=== PATIENT | male | born 2005 | race Caucasian/White ===

== ENCOUNTER 2025-01-03 18:58 | Observation (INO) | payer OTHER, SELFPAY ==
[2025-01-03] VITALS (10 sets, daily range): BP systolic 93–114; BP diastolic 42–86; PULSE 62–73; RESP 11–17; TEMP 36.4; O2SAT 96–100
--- NOTE | ~2025-01-03 | CT_ITS ---
History: Altered mental status PROCEDURE: CT cervical spine without intravenous contrast. COMPARISON: None TECHNIQUE: Multiple contiguous axial images of the cervical spine were performed without the administration of i ntravenous contrast. DLP: 362 mGy-cm FINDINGS: Straightening and slight reversal of the normal curvature of the cervical spine is identified, likely muscular in origin. No acute fractures are present. The bilateral lung apices are unremarkable. No soft tissue abnormality is present. The airway is unremarkable. Impression: Straightening and slight reversal of the normal curvature of the cervical spine, likely muscular in o rigin. No acute fracture. Reviewed, dictated and finalized at location A. Impression: Straightening and slight reversal of the normal curvature of the cervical spine , likely muscular in origin. No acute fracture.
--- NOTE | ~2025-01-03 | CT_ITS ---
History: Altered mental status PROCEDURE: CT head without contrast. COMPARISON: None TECHNIQUE: Axial imaging of the head performed from the skull base to the vertex without IV contrast. Sagittal a nd coronal reformations obtained. DLP: 681 mGy-cm FINDINGS: The ventricles are normal in size, shape and position. There is no mass, mass effect or midline shift. There is no abnormal extra-axial fluid collection or intracranial hemorrhage. Visualized paranasal sinuses are clear. The mastoid air cells are well aerated. No acute displaced fractures within the overlying cranium. Impression: No acute intracranial hemorrhage or suspicious mass effect. Reviewed, dictated and finalized at location A. Impression: No acute intracranial hemorrhage or suspicious mass effect.
--- NOTE | ~2025-01-03 | CT_ITS ---
CLINICAL INDICATION: COMPARISON: . TECHNIQUE: An enhanced CT of the abdomen and pelvis was performed utilizing multislice spiral [place] ue reconstructed at 5 mm slice thickness. Coronal and sagittal reconstructions were performed. This CT examination was performed utilizing dose reduction techniques. DLP: mGy-cm FINDINGS/OBSERVATIONS: Lung: The lungs are clear. The heart is of normal size, without pericardial effusion. Mediastinum: No pathologically enlarged or morphologically suspicious lymph nodes are identified within the medias tinum, bilateral axilla, within the soft tissues of the anterior chest wall. Soft tissues of the chest: Unremarkable. Bones of the chest: No acute fracture. No lytic or blastic lesions are identified. Liver: The liver enhances homogeneously and is enlarged measuring 20cm in longitudinal dimension. Gallbladder and biliary system: The gallbladder is only minimally distended, but otherwise unremarkable. Pancreas: The pancreas enhances homogeneously, without ductal dilatation. Spleen: The spleen enhances homogeneously and is not enlarged. Kidneys: 14 mm focus of fluid attenuation within the upper pole of the left kidney for which a cyst i s suspected. 22 mm focus of decreased attenuation within the lower pole of the right kidney, also likely a simple cyst. The remainder of the bilateral kidneys otherwise enhance symmetrically without hydronephrosis or marley l calculi. Adrenal glands: Unremarkable. Gastrointestinal tract: Small hiatal hernia is present. Fecal stasis within the colon. Appendix: The appendix is not definitively visualized. However, no pericecal inflammatory change is identified suggest the presence of acute appendicitis. Vasculature: Unremarkable Lymph nodes: Scattered nonpathologically enlarged lymph nodes within the root of the mesentery and deep in the pel vis. Pelvic structures: The bladder is distended and otherwise unremarkable. The prostate gland is not enlarged. Body wall and musculoskeletal: No significant degenerative disease within the thoracic or lumbosacral spine. IMPRESSION: No acute pathology within the chest, abdomen or pelvis, as detailed above. Reviewed, dictated and finalized at location A.
--- NOTE | 2025-01-03 19:21 | ECG_ITS ---
Test Date: 2025-01-03 19:44:31 Measurements Intervals [place] Rate: 80 P: 99 NC: 141 QRS: 126 QRSD: 95 T: 131 QT: 363 QTc: 420 Interpretive Statements SINUS RHYTHM WITH SINUS ARRHYTHMIA LEFT POSTERIOR FASCICULAR BLOCK [QRS AXIS > 109, INFERIOR Q] No previous ECG available for comparison Electronically Signed On 01-04-2025 12:40:29 CDT by Justine Chavira M.D.
[2025-01-03 19:33] LABS: Basophils Percent Auto 0.4 % (0.2-1.2); Hematocrit 44.5 % (42.0-52.0); Hemoglobin 14.7 g/dL (14.0-18.0); Immature Granulocyte Absolute 0.02 K/mm3 (0.00-0.031); Immature Granulocyte Percent A 0.2 % (0-0.5); Lymphocytes Absolute Auto 1.19 K/mm3 (0.9-3.2); Lymphocytes Percent Auto 12.8 % (18.3-44.2); Mean Corpuscular Hemoglobin 27.8 pg (26-34); Mean Corpuscular Volume 84.3 fl (80-100); Mean Platelet Volume 10.5 fl (7.4-10.4); Monocytes Absolute Auto 0.3 K/mm3 (0.1-0.6); Monocytes Percent Auto 3.2 % (2.6-8.5); Neutrophils Absolute Auto 7.8 K/mm3 (1.3-6.7); Neutrophils Percent Auto 83.4 % (45.5-73.1); Platelet Count Result 278 k/mm3 (150-375); Red Blood Count 5.28 M/mm3 (4.6-6.20); Red Cell Distribution Width 12.9 % (11.5-14.5); White Blood Count 9.3 K/mm3 (4.5-10.0)
[2025-01-03 19:42] LABS: Alanine Aminotransferase 19 U/L (6-50); Albumin Level 5.2 g/dL (3.7-5.6); Alkaline Phosphatase 89 U/L (58-237); Anion Gap 10 mmol/L (4-12); Aspartate Amino Transferase 26 U/L (17-59); Bilirubin,Total 0.7 mg/dL (0.2-1.3); Blood Urea Nitrogen 10 mg/dL (8-21); Carbon Dioxide 25 mmol/L (22-30); Chloride 104 mmol/L (98-107); Estimated Glomerular Filt Rate > 60; Glucose 84 mg/dL (65-110); Potassium 4.5 mmol/L (3.4-5.0); Sodium 139 mmol/L (134-143)
[2025-01-03 19:59] LABS: Prothrombin Time 13.9 Seconds (11.1-14.7)
--- NOTE | 2025-01-03 19:59 | ED_ITS ---
HPI - Alcohol General Chief Complaint: Altered Mental Status Stated Complaint: Not acting right-admits to drinking Time Seen by Provider: 01/03/25 19:21 Source: patient and family (Father) Limitations: clinical condition History of Present Illness HPI narrative: Patient presents with report of abnormal behavior/altered mental status. Patient been somnolent con drowsy. He did not show up for work. Patient endorsed drinking half bottle of champagne as well as whiskey. He denied drug use. History of occasional alcohol and THC but never to degree make him this altered. Occasional melatonin because he can't sleep but does not take any other medications regularly in patient's father denies access to any other medications that he could have taken intentionally/overdosed on. He recently moved back in with father. Planning to go to [employer] in April and has recently been talking to a girl so father thought he was doing better. Has not been making any threats on his life recently. Related Data Allergies Allergy/AdvReac Type Severity Reaction Status Date / Time No Known Allergies Allergy Verified 01/03/25 19:00 [facility] Social History Social History Smoking status: Never smoker Smokeless tobacco user: chewing tobacco Second hand tobacco smoke exposure: No Alcohol intake: never Alcohol use details: Occasional Substance use: current Substance use type: marijuana Do You Feel Safe in your Home?: Yes Lack of Transportation: No Lack of Food: Never True Current Housing: I Have Housing Concerned About Future Housing: No Difficulty Paying Gas/Electric Bills: No Difficulty Paying for Meds: No Currently Unemployed: No Education: High School Diploma/GED Difficulty w/ Childcare or Family Care: No Living arrangements: with family Additional living arrangements comments: Father and younger brother Occupation/Education: occupation Additional occupation/education comments: [employer] Spiritual care concerns: No Exam 2 Narrative: GENERAL: well-nourished, and in no acute distress. HEAD: Normocephalic, atraumatic. EYES: Non injected, non icteric. Pupils 8 mm bilaterally, sluggishly reactive. ENT: Nares clear, no rhinorrhea or epistaxis. Gross auditory acuity intact. No hemotympanum. Dry lips, mildly tacky mucous membranes. NECK: Supple. No meningismus. CHEST: Speaking in full sentences. No respiratory distress. Lungs clear to auscultation bilaterally. HEART: Regular rate and rhythm. . ABDOMEN: Soft, nondistended. No rigidity or guarding. Not peritoneal EXTREMITIES: No lower extremity edema. Demonstrates ability to move arms and legs but with minimal motion. SKIN: Warm, dry, no rash. NEURO: No focal deficits. Alert and oriented to self, date, location. Somnolent, frequently falling back asleep. Answering questions. Following commands. No ankle clonus bilaterally. PSYCH: Normal mood and affect. Course Vital Signs Vital signs: Vital Signs Temperature 97.6 F 01/03/25 19:03 Pulse Rate 73 01/03/25 19:03 Respiratory Rate 17 01/03/25 19:03 Blood Pressure 114/59 L 01/03/25 19:03 Pulse Oximetry 100 01/03/25 19:03 Oxygen Delivery Room Air 01/03/25 19:03 Temperature 98.0 F 01/04/25 12:00 Pulse Rate 64 01/04/25 12:00 Respiratory Rate 16 01/04/25 12:00 Blood Pressure 105/52 L 01/04/25 12:00 Pulse Oximetry 100 01/04/25 12:00 Oxygen Delivery Room Air 01/04/25 09:02 MDM - Alcohol MDM Narrative Medical decision making narrative: Patient presents with altered mental status and sluggishness, more somnolent. This is abnormal for patient as he did not show up to work. Drowsy. Told father drank champagne and whiskey. In the emergency department he is afebrile with acceptable vital signs, mildly low diastolic blood pressure but with a mean arterial pressure of more than 75 mm Hg. I am informed by the nurse that patient's heart rate in the 80s however when he stands up it does jump into the 150s. For this reason 1 L IV fluids ordered. Alcohol level is negative. Head CT ordered as is CT chest/abd / pelvis and CT c spine. UDS positive cannabinoids. TSH is low. Reflex T4 and T3 ordered. Low suspicion for opiate use given history and UDS and mydriasis but trialed Narcan due to somnolence; no change. Normal T4 and T3, reflecting subclinical hyperthyroidism. Patient reassessed at 11:15 p.m.. He remains somnolent but protecting his airway and not desaturating. Hypotensive, potentially a degree of normal for his age and body habitus but will order another IV fluid bolus. Family found out that patient took 8 8 mg edible gummies, 2 last night and 6 today and of a particular strain. RN to call poison control. Poison control recommended monitor, obtain acetaminophen salicylate levels, and, given QRS >120, an amp or two of bicarb. This is ordered and given but, upon further review, it seems that the improper number must have been conveyed to Poison Control. No harm in giving but no need to give another dose. Discussed patient with hospitalist RAFAELA at [facility] who declines admission currently given typically these patients are observed in the ED. Patient intermittently reassessed. He does not desaturate but is occasionaly bradypneic and requires sternal rub. Poison control calls again at approximately 03:00 and do note that admission is typically indicated in these patients, especially given here for 8 hours. . RAFAELA Mihai Pollock did evaluate patient at bedside and accepted admission. Telemetry. Differential Diagnosis Differential diagnosis: Likely alcohol intoxication and other (Drug, intracranial hemorrhage, thyroid dysfunction; ) Lab Data Attestation: I reviewed the patient's lab results. Lab results narrative: Urinalysis CPK normal. 01/04/25 05:39 01/04/25 05:39 Labs: Lab Results 01/03/25 01/03/25 01/03/25 Range/Units 19:24 19:25 19:26 WBC 9.3 (4.5-10.0) K/mm3 RBC 5.28 (4.6-6.20) M/mm3 Hgb 14.7 (14.0-18.0) g/dL Hct 44.5 (42.0-52.0) % MCV 84.3 (80-100) fl MCH 27.8 (26-34) pg MCHC 33.0 (32-36) g/dl RDW 12.9 (11.5-14.5) % Plt Count 278 (150-375) k/mm3 MPV 10.5 H (7.4-10.4) fl Immature Gran % (Auto) 0.2 (0-0.5) % Neut % (Auto) 83.4 H (45.5-73.1) % Lymph % (Auto) 12.8 L (18.3-44.2) % [place] % (Auto) 3.2 (2.6-8.5) % Eos % (Auto) 0.0 (0-4.4) % Baso % (Auto) 0.4 (0.2-1.2) % Lymph # (Auto) 1.19 (0.9-3.2) K/mm3 [place] # (Auto) 0.3 (0.1-0.6) K/mm3 Eos # (Auto) 0.0 (0-0.3) K/mm3 Baso # (Auto) 0.0 (0.0-0.1) K/mm3 Abs Immat Gran (auto) 0.02 (0.00-0.031) K/mm3 Absolute Neuts (auto) 7.8 H (1.3-6.7) K/mm3 Absolute Nucleated RBC 0.000 (0.0-0.012) K/mm3 Nucleated RBC % 0.0 (0.0-0.2) % PT 13.9 (11.1-14.7) Seconds INR 1.0 APTT 23.9 (22.3-36.8) Seconds Sodium 139 (134-143) mmol/L Potassium 4.5 (3.4-5.0) mmol/L Chloride 104 (98-107) mmol/L Carbon Dioxide 25 (22-30) mmol/L Anion Gap 10 (4-12) mmol/L BUN 10 (8-21) mg/dL Creatinine 0.79 (0.7-1.3) mg/dL Estim Creat Clear Calc Not Reportable Estimated GFR > 60 (59 - ) Glucose 84 (65-110) mg/dL Calcium 10.0 (8.9-10.7) mg/dL Total Bilirubin 0.7 (0.2-1.3) mg/dL AST 26 (17-59) U/L ALT 19 (6-50) U/L Alkaline Phosphatase 89 (58-237) U/L Ammonia (9-30) umol/L Total Creatine Kinase 104 (55-170) U/L Total Protein 8.0 (6.3-8.6) g/dL Albumin 5.2 (3.7-5.6) g/dL TSH 0.296 L (0.465-4.680) uIU/mL Thyroxine (T4) (5.53-11.0) ug/dL Total T3 (0.97-1.69) NG/ML Urine Color (Yellow) Urine Appearance (Clear) Urine pH (5.0-9.0) Ur Specific [place] (1.001-1.035) Urine Protein (Negative) mg/dL Urine Glucose (UA) (Negative) mg/dL Urine Ketones (Negative) mg/dL Ur Blood (Man) (Negative) Urine Nitrate (Negative) Urine Bilirubin (Negative) Urine Urobilinogen (<2.0) mg/dL Leukocyte Esterase Rfl (Negative) ZOHRA/UL Salicylates (2-20) mg/dL Urine Opiates Screen (Negative) Urine Methadone Screen (Negative) Acetaminophen (10-30) ug/mL Ur Barbiturates Screen (Negative) Ur Phencyclidine Scrn (Negative) Ur Amphetamine Screen (Negative) U Benzodiazepines Scrn (Negative) Urine Cocaine Screen (Negative) U Cannabinoids Screen (Negative) Ethyl Alcohol < 10 (<10) mg/dL 01/03/25 01/03/25 01/03/25 Range/Units 20:24 21:37 21:38 WBC (4.5-10.0) K/mm3 RBC (4.6-6.20) M/mm3 Hgb (14.0-18.0) g/dL Hct (42.0-52.0) % MCV (80-100) fl MCH (26-34) pg MCHC (32-36) g/dl RDW (11.5-14.5) % Plt Count (150-375) k/mm3 MPV (7.4-10.4) fl Immature Gran % (Auto) (0-0.5) % Neut % (Auto) (45.5-73.1) % Lymph % (Auto) (18.3-44.2) % [place] % (Auto) (2.6-8.5) % Eos % (Auto) (0-4.4) % Baso % (Auto) (0.2-1.2) % Lymph # (Auto) (0.9-3.2) K/mm3 [place] # (Auto) (0.1-0.6) K/mm3 Eos # (Auto) (0-0.3) K/mm3 Baso # (Auto) (0.0-0.1) K/mm3 Abs Immat Gran (auto) (0.00-0.031) K/mm3 Absolute Neuts (auto) (1.3-6.7) K/mm3 Absolute Nucleated RBC (0.0-0.012) K/mm3 Nucleated RBC % (0.0-0.2) % PT (11.1-14.7) Seconds INR APTT (22.3-36.8) Seconds Sodium (134-143) mmol/L Potassium (3.4-5.0) mmol/L Chloride (98-107) mmol/L Carbon Dioxide (22-30) mmol/L Anion Gap (4-12) mmol/L BUN (8-21) mg/dL Creatinine (0.7-1.3) mg/dL Estim Creat Clear Calc Estimated GFR (59 - ) Glucose (65-110) mg/dL Calcium (8.9-10.7) mg/dL Total Bilirubin (0.2-1.3) mg/dL AST (17-59) U/L ALT (6-50) U/L Alkaline Phosphatase (58-237) U/L Ammonia < 9 L (9-30) umol/L Total Creatine Kinase (55-170) U/L Total Protein (6.3-8.6) g/dL Albumin (3.7-5.6) g/dL TSH (0.465-4.680) uIU/mL Thyroxine (T4) 7.20 (5.53-11.0) ug/dL Total T3 1.31 (0.97-1.69) NG/ML Urine Color Yellow (Yellow) Urine Appearance Clear (Clear) Urine pH 5.5 (5.0-9.0) Ur Specific [place] 1.021 (1.001-1.035) Urine Protein Negative (Negative) mg/dL Urine Glucose (UA) Negative (Negative) mg/dL Urine Ketones Negative (Negative) mg/dL Ur Blood (Man) Negative (Negative) Urine Nitrate Negative (Negative) Urine Bilirubin Negative (Negative) Urine Urobilinogen 1.0 (<2.0) mg/dL Leukocyte Esterase Rfl Negative (Negative) ZOHRA/UL Salicylates (2-20) mg/dL Urine Opiates Screen Negative (Negative) Urine Methadone Screen Negative (Negative) Acetaminophen (10-30) ug/mL Ur Barbiturates Screen Negative (Negative) Ur Phencyclidine Scrn Negative (Negative) Ur Amphetamine Screen Negative (Negative) U Benzodiazepines Scrn Negative (Negative) Urine Cocaine Screen Negative (Negative) U Cannabinoids Screen Positive A (Negative) Ethyl Alcohol (<10) mg/dL 01/03/25 Range/Units 22:17 WBC (4.5-10.0) K/mm3 RBC (4.6-6.20) M/mm3 Hgb (14.0-18.0) g/dL Hct (42.0-52.0) % MCV (80-100) fl MCH (26-34) pg MCHC (32-36) g/dl RDW (11.5-14.5) % Plt Count (150-375) k/mm3 MPV (7.4-10.4) fl Immature Gran % (Auto) (0-0.5) % Neut % (Auto) (45.5-73.1) % Lymph % (Auto) (18.3-44.2) % [place] % (Auto) (2.6-8.5) % Eos % (Auto) (0-4.4) % Baso % (Auto) (0.2-1.2) % Lymph # (Auto) (0.9-3.2) K/mm3 [place] # (Auto) (0.1-0.6) K/mm3 Eos # (Auto) (0-0.3) K/mm3 Baso # (Auto) (0.0-0.1) K/mm3 Abs Immat Gran (auto) (0.00-0.031) K/mm3 Absolute Neuts (auto) (1.3-6.7) K/mm3 Absolute Nucleated RBC (0.0-0.012) K/mm3 Nucleated RBC % (0.0-0.2) % PT (11.1-14.7) Seconds INR APTT (22.3-36.8) Seconds Sodium (134-143) mmol/L Potassium (3.4-5.0) mmol/L Chloride (98-107) mmol/L Carbon Dioxide (22-30) mmol/L Anion Gap (4-12) mmol/L BUN (8-21) mg/dL Creatinine (0.7-1.3) mg/dL Estim Creat Clear Calc Estimated GFR (59 - ) Glucose (65-110) mg/dL Calcium (8.9-10.7) mg/dL Total Bilirubin (0.2-1.3) mg/dL AST (17-59) U/L ALT (6-50) U/L Alkaline Phosphatase (58-237) U/L Ammonia (9-30) umol/L Total Creatine Kinase (55-170) U/L Total Protein (6.3-8.6) g/dL Albumin (3.7-5.6) g/dL TSH (0.465-4.680) uIU/mL Thyroxine (T4) (5.53-11.0) ug/dL Total T3 (0.97-1.69) NG/ML Urine Color (Yellow) Urine Appearance (Clear) Urine pH (5.0-9.0) Ur Specific [place] (1.001-1.035) Urine Protein (Negative) mg/dL Urine Glucose (UA) (Negative) mg/dL Urine Ketones (Negative) mg/dL Ur Blood (Man) (Negative) Urine Nitrate (Negative) Urine Bilirubin (Negative) Urine Urobilinogen (<2.0) mg/dL Leukocyte Esterase Rfl (Negative) ZOHRA/UL Salicylates < 1.0 L (2-20) mg/dL Urine Opiates Screen (Negative) Urine Methadone Screen (Negative) Acetaminophen < 10 L (10-30) ug/mL Ur Barbiturates Screen (Negative) Ur Phencyclidine Scrn (Negative) Ur Amphetamine Screen (Negative) U Benzodiazepines Scrn (Negative) Urine Cocaine Screen (Negative) U Cannabinoids Screen (Negative) Ethyl Alcohol (<10) mg/dL Imaging Data Attestation: I personally reviewed and interpreted this imaging study as follows: My impression: No intracranial hemorrhage on my independent interpretation of head CT. No obvious acute pathology on my independent interpretation of chest abdomen pelvis CT Radiologist's impression: ITS Impressions Head CT 01/03/25 21:29 Impression: No acute intracranial hemorrhage or suspicious mass effect. Cervical Spine CT 01/03/25 21:30 Impression: Straightening and slight reversal of the normal curvature of the cervical spine, likely muscular in origin. No acute fracture. Chest/Abdomen/Pelvis CT 01/03/25 21:33 IMPRESSION: No acute pathology within the chest, abdomen or pelvis, as detailed above. ECG Data EKG #1: Attestation: I personally reviewed and interpreted this ECG as follows: ECG completion date: 01/03/25 ECG completion time: 19:44 Interpretation: Normal sinus rhythm at a rate of 80 beats per minute. There is some R to R variation consistent with sinus arrhythmia . Likely due to respiratory variation. Good R-wave progression across precordial leads. No T-wave inversion. Incomplete Left posterior fascicular block as no prolonged QRS duration, though rS complexes in leads I and aVF (small R waves and deep S waves), qR complexes in inferior leads, and right axis deviation (inferior leads positive with negative I and aVL. Discharge Plan Discharge Clinical Impression: Altered mental state, Subclinical hyperthyroidism Cannabis overdose Qualifiers: Encounter type: initial encounter Patient Disposition: Still a Patient Condition: Stable Time of Disposition: 03:48
[2025-01-03 20:00] LABS: Partial Thromboplastin Time 23.9 Seconds (22.3-36.8)
[2025-01-03 20:04] LABS: Ethanol < 10 mg/dL (<10)
[2025-01-03] MEDS: SODIUM CHLORIDE 0.9% IV 1,000 ML 999 ML IV CONT ×2 (20:13→23:38)
[2025-01-03 20:35] LABS: Creatine Kinase 104 U/L (55-170)
[2025-01-03 20:42] LABS: Add Urine Microscopic? NO; Appearance Urine Clear (Clear); Bilirubin Urine Negative (Negative); Blood Urine Negative (Negative); Color Urine Yellow (Yellow); Glucose Urine UA Negative (Negative); Ketones Urine Negative (Negative); Leukocyte Esterase Ur Negative LEU/UL (Negative); Nitrate Urine Negative (Negative); Protein Urine Negative (Negative); Specific Grav Ur 1.021 (1.001-1.035); pH Urine 5.5 (5.0-9.0)
[2025-01-03 20:57] LABS: Amphetamine Screen Urine Negative (Negative); Barbiturate Screen Urine Negative (Negative); Benzodiazepines Screen Urine Negative (Negative); Cannabinoid Screen Urine Positive (Negative); Cocaine Screen Urine Negative (Negative); Methadone Screen Urine Negative (Negative); Opiate Screen Urine Negative (Negative); Phencyclidine Screen Urine Negative (Negative)
[2025-01-03 21:07] LABS: Thyroid Stimulating Hormone 0.296 uIU/mL (0.465-4.680)
[2025-01-03 21:54] LABS: Ammonia < 9 umol/L (9-30)
[2025-01-03] MEDS: NALOXONE HCL 0.4 MG/ML VIAL IV PUSH (22:03)
--- NOTE | 2025-01-03 22:14 | PC.NURSE ---
EDP Dr. Gould made aware of pt becoming more somnolent. Pt responsive to sternal rub and painful stimuli. VS stable/within normal limited. Additional labs being drawn at this time. No further orders at this time.
[2025-01-03 23:02] LABS: Total Triiodothyronine (T3) 1.31 NG/ML (0.97-1.69)
--- NOTE | 2025-01-03 23:36 | PC.NURSE ---
This RN contacted poison control at this time. MYRNA Escobedo recommended additional labs of CPK, Aspirin, and Tylenol if not already drawn. Due to QRS of 126 Gregg also recommended 1-2 amps of sodium bicarb boluses. Recommendations of monitoring for 6 hours ([id number]) and if sx of drowsiness have not resolved suggestive to admit for observation. RN to monitor for tachycardia, AMS, emesis, and seizures. .
[2025-01-03 23:56] LABS: Acetaminophen < 10 ug/mL (10-30); Salicylate < 1.0 mg/dL (2-20)
[2025-01-04] VITALS (9 sets, daily range): BP systolic 90–117; BP diastolic 50–72; PULSE 57–101; RESP 12–17; TEMP 36.4–36.7; O2SAT 97–100; BMI 20.3
[2025-01-04] MEDS: SODIUM BICARBONATE 8.4% 50 MEQ/50 ML SYRINGE IV PUSH (00:04)
--- NOTE | 2025-01-04 03:06 | PC.NURSE ---
Poison control called for update on patient at this time. This RN updated MYRNA Escobedo about additional lab results and pt not being admitted to hospital per admitting hospitalist. Poison control recommended pt to be admitted for observation as status of pt has not improved in 8 hours he has been at this facility. EDP Dr. Gould made aware.
[2025-01-04] MEDS: SODIUM CHLORIDE 0.9% IV 1,000 ML 999 ML IV CONT (03:45)
--- NOTE | 2025-01-04 03:48 | PM.IMHP ---
H&P: HPI History of Present Illness Date/Time: 01/04/25 03:48 Chief Complaint: Altered mental status secondary to cannabis overdose Narrative: This is a 19 year old male patient who is admitted to the hospital after prolonged observation in ER after reported cannabis overdose over 24 hours ago. Mother and father are at bedside at time of exam. Patient was last known well around 2200 on 01/02/25 before patient's father went to bed. Since that time patient reported taking 2 THC-P gummies but a friend told dad that he actually had 8 of these gummies. There was also possible ETOH ingestion as well. On 01/03 when dad got home from work patient was altered LOC in a chair at the home. Patient was barely responding and falling back asleep promptly. Patient told ER that he drank some champagne and whiskey in addition to THC-P. Family and patient deny attempt to harm himself but it did appear that patient missed work today. Urine drug screen showed cannabis. ETOH was negative. Patient very somnelent and requires moderate tactile stimulus to awaken. He will answer 1-2 questions and fall immediately back asleep. Blood pressure gradually drifting lower. Patient has not had anything to eat or drink in over 24 hours. IV fluids given in ER. CT scan of head, cervical spine, chest/abdomen/pelvis completed in ER. No traumatic injuries identified nor suspected. Poison control recommended admission to the hospital for prolonged monitoring. Patient will be admitted to observation status on Med/Surg with Telemetry. Review of Systems Review of Systems: Patient denies pain or difficulty breathing. ROS unobtainable: Yes unobtainable due to mental status PMFSH Social History Social History Alcohol intake: current Alcohol use details: Occasional Substance use: former Substance use type: marijuana Living arrangements: with family Additional living arrangements comments: Father and younger brother Occupation/Education: occupation Additional occupation/education comments: [employer] Med[employer] Home Medications and Allergies Allergies Allergy/AdvReac Type Severity Reaction Status Date / Time No Known Allergies Allergy Verified 01/03/25 19:00 Vital Signs Vital Signs - 24 hr 01/03/25 19:03 01/03/25 19:31 01/03/25 19:46 Temperature 36.4 C Pulse Rate 73 70 68 Respiratory Rate 17 11 L 12 Blood Pressure 114/59 L 105/51 L 106/56 L Pulse Oximetry 100 100 97 Oxygen Delivery Room Air 01/03/25 20:01 01/03/25 20:02 01/03/25 20:30 Temperature Pulse Rate 66 66 Respiratory Rate 12 15 Blood Pressure 96/49 L 105/86 Pulse Oximetry 96 96 98 Oxygen Delivery Room Air 01/03/25 21:10 01/03/25 21:40 01/03/25 23:20 Temperature Pulse Rate 66 66 62 Respiratory Rate 17 14 Blood Pressure 102/43 L 101/42 L Pulse Oximetry 98 98 Oxygen Delivery 01/03/25 23:59 01/04/25 01:20 01/04/25 02:34 Temperature Pulse Rate 62 60 57 L Respiratory Rate 14 17 12 Blood Pressure 93/50 L 90/53 L 91/50 L Pulse Oximetry 98 97 97 Oxygen Delivery Exam Narrative: GENERAL: Responds to tactile stimulus, falls back asleep promptly HEAD: Normocephalic, atraumatic. EYES: non icteric. Pupils 6 mm bilaterally, sluggishly reactive. Right conjunctival erythema without drainage noted ENT: Nares clear, no rhinorrhea or epistaxis. Gross auditory acuity intact. No hemotympanum. Dry lips, mildly tacky mucous membranes. NECK: Supple. No meningismus. CHEST: Speaking in full sentences. No respiratory distress. Lungs clear to auscultation bilaterally. HEART: Regular rate and rhythm. ABDOMEN: Soft, nondistended. No rigidity or guarding. Not peritoneal EXTREMITIES: No lower extremity edema. Demonstrates ability to move arms and legs but with minimal motion. SKIN: Warm, dry, no rash. NEURO: Awakens to gentle shaking with hand on sternum, no deep sternal rub needed. Once awake will follow commands and answer 1-2 questions before falling back asleep PSYCH: Unable to assess H&P: Results Labs Labs: Short CBC 01/03/25 Range/Units 19:26 WBC 9.3 (4.5-10.0) K/mm3 Hgb 14.7 (14.0-18.0) g/dL Hct 44.5 (42.0-52.0) % Plt Count 278 (150-375) k/mm3 [facility] 01/03/25 19:26 Sodium 139 Potassium 4.5 Chloride 104 Carbon Dioxide 25 BUN 10 Creatinine 0.79 Glucose 84 Calcium 10.0 Cardiac Enzymes 01/03/25 Range/Units 19:24 Total Creatine Kinase 104 (55-170) U/L Liver Function 01/03/25 Range/Units 19:26 Total Bilirubin 0.7 (0.2-1.3) mg/dL AST 26 (17-59) U/L ALT 19 (6-50) U/L Alkaline Phosphatase 89 (58-237) U/L Albumin 5.2 (3.7-5.6) g/dL Urine 01/03/25 Range/Units 20:24 Urine Color Yellow (Yellow) Urine Appearance Clear (Clear) Urine pH 5.5 (5.0-9.0) Ur Specific [place] 1.021 (1.001-1.035) Urine Protein Negative (Negative) mg/dL Urine Glucose (UA) Negative (Negative) mg/dL Pulse Oximetry SpO2 results: 96-98% on room air Attestation: I personally reviewed and interpreted this pulse oximetry as follows: Interpretation: No need for supplemental oxygenation at this time ECG Attestation: I personally reviewed and interpreted this ECG as follows: ECG completion date: 01/03/25 ECG completion time: 19:44 Prior ECG tracings: not available for review Interpretation: Sinus arrhythmia rate of 80, ME 141, QRSd 95, QTC 420, QRS axis 126, no STEMI or acute ischemic changes noted Imaging CT scan - head: Radiologist's impression: History: Altered mental status PROCEDURE: CT head without contrast. COMPARISON: None TECHNIQUE: Axial imaging of the head performed from the skull base to the vertex without IV contrast. Sagittal and coronal reformations obtained. DLP: 681 mGy-cm FINDINGS: The ventricles are normal in size, shape and position. There is no mass, mass effect or midline shift. There is no abnormal extra-axial fluid collection or intracranial hemorrhage. Visualized paranasal sinuses are clear. The mastoid air cells are well aerated. No acute displaced fractures within the overlying cranium. Impression: No acute intracranial hemorrhage or suspicious mass effect. Reviewed, dictated and finalized at location A. CT cervical spine: Radiologist's impression: History: Altered mental status PROCEDURE: CT cervical spine without intravenous contrast. COMPARISON: None TECHNIQUE: Multiple contiguous axial images of the cervical spine were performed without the administration of intravenous contrast. DLP: 362 mGy-cm FINDINGS: Straightening and slight reversal of the normal curvature of the cervical spine is identified, likely muscular in origin. No acute fractures are present. The bilateral lung apices are unremarkable. No soft tissue abnormality is present. The airway is unremarkable. Impression: Straightening and slight reversal of the normal curvature of the cervical spine, likely muscular in origin. No acute fracture. Reviewed, dictated and finalized at location A. CT scan - chest: Radiologist's impression: CLINICAL INDICATION: COMPARISON: . TECHNIQUE: An enhanced CT of the abdomen and pelvis was performed utilizing multislice spiral technique reconstructed at 5 mm slice thickness. Coronal and sagittal reconstructions were performed. This CT examination was performed utilizing dose reduction techniques. DLP: mGy-cm FINDINGS/OBSERVATIONS: Lung: The lungs are clear. The heart is of normal size, without pericardial effusion. Mediastinum: No pathologically enlarged or morphologically suspicious lymph nodes are identified within the mediastinum, bilateral axilla, within the soft tissues of the anterior chest wall. Soft tissues of the chest: Unremarkable. Bones of the chest: No acute fracture. No lytic or blastic lesions are identified. Liver: The liver enhances homogeneously and is enlarged measuring 20cm in longitudinal dimension. Gallbladder and biliary system: The gallbladder is only minimally distended, but otherwise unremarkable. Pancreas: The pancreas enhances homogeneously, without ductal dilatation. Spleen: The spleen enhances homogeneously and is not enlarged. Kidneys: 14 mm focus of fluid attenuation within the upper pole of the left kidney for which a cyst is suspected. 22 mm focus of decreased attenuation within the lower pole of the right kidney, also likely a simple cyst. The remainder of the bilateral kidneys otherwise enhance symmetrically without hydronephrosis or renal calculi. Adrenal glands: Unremarkable. Gastrointestinal tract: Small hiatal hernia is present. Fecal stasis within the colon. Appendix: The appendix is not definitively visualized. However, no pericecal inflammatory change is identified suggest the presence of acute appendicitis. Vasculature: Unremarkable Lymph nodes: Scattered nonpathologically enlarged lymph nodes within the root of the mesentery and deep in the pelvis. Pelvic structures: The bladder is distended and otherwise unremarkable. The prostate gland is not enlarged. Body wall and musculoskeletal: No significant degenerative disease within the thoracic or lumbosacral spine. IMPRESSION: No acute pathology within the chest, abdomen or pelvis, as detailed above. Reviewed, dictated and finalized at location A. Assessment and Plan Assessment and plan (1) Altered mental state: Code(s): R41.82 - Altered mental status, unspecified Status: Acute Assessment and Plan: -Patient states 2 THC-P gummies 8 mg each however friend informed family that patient had 8 of these gummies with some alcohol on 01/02/25 evening -UDS positive for cannabis, otherwise negative -Pupils dilated and sluggish and patient responsive to tactile stimulus -No response to Narcan in ER -No change in condition despite prolonged observation in ER -Poison control recommends admission with symptomatic care -No known or suspected self harm but patient should be questioned again when awake -BP/HR drifting lower overnight (probably normal given age/weight/health status -Tachycardia reported when patient had increased activity prior to IV fluids in ER -ETOH and other labs negative/normal. (2) Cannabis overdose: Qualifiers: Encounter type: initial encounter Code(s): T40.711A - Poisoning by cannabis, accidental (unintentional), initial encounter Status: Acute Assessment and Plan: See above Quality If No VTE Prophylaxis Answer both mechanical and pharmacologic: Reason no mechanical VTE proph: low risk/not indicated Reason no pharmacologic proph: low risk/not indicated Total time spent on this patient 90 minutes Hospitalist MIPS Advance Care Plan I have confirmed that the patient's Advanced Care Plan is present, code status is documented, or surrogate decision maker is listed in patient medical record.: Yes Medication Reconciliation I have utilized all available resources to obtain, update and review the patients current medications (includes all prescriptions, OTC, herbals, cannabis, and nutritional supplements).: Yes
--- NOTE | 2025-01-04 05:47 | PC.NURSE ---
This patient, Herson Rivers, was admitted to [facility] Surg Room 305-02. Patient/family oriented to hospital policies and general routines including ID bracelet, bed and alarms, visiting hours, pain management, procedures, bathroom and other care routines, personal items, smoking policy, room service/diet, and visiting hours. Information on how to activate the Rapid Response Team has been discussed. Patient/Family are encouraged to report perceived risks to care and to ask questions if they do not understand what they are told or what they should do.
[2025-01-04 06:23] LABS: Basophils Absolute Auto 0.1 K/mm3 (0.0-0.1); Basophils Percent Auto 0.8 % (0.2-1.2); Eosinophils Absolute Auto 0.1 K/mm3 (0-0.3); Eosinophils Percent Auto 0.7 % (0-4.4); Hematocrit 42.4 % (42.0-52.0); Hemoglobin 13.6 g/dL (14.0-18.0); Immature Granulocyte Absolute 0.02 K/mm3 (0.00-0.031); Immature Granulocyte Percent A 0.2 % (0-0.5); Lymphocytes Absolute Auto 3.16 K/mm3 (0.9-3.2); Lymphocytes Percent Auto 32.5 % (18.3-44.2); Mean Corpuscular HGB Conc 32.1 g/dl (32-36); Mean Corpuscular Hemoglobin 28.1 pg (26-34); Mean Corpuscular Volume 87.6 fl (80-100); Mean Platelet Volume 11.2 fl (7.4-10.4); Monocytes Absolute Auto 0.6 K/mm3 (0.1-0.6); Monocytes Percent Auto 5.7 % (2.6-8.5); Neutrophils Absolute Auto 5.9 K/mm3 (1.3-6.7); Neutrophils Percent Auto 60.1 % (45.5-73.1); Platelet Count Result 221 k/mm3 (150-375); Red Blood Count 4.84 M/mm3 (4.6-6.20); Red Cell Distribution Width 12.9 % (11.5-14.5); White Blood Count 9.7 K/mm3 (4.5-10.0)
[2025-01-04 06:42] LABS: Alanine Aminotransferase 17 U/L (6-50); Albumin Level 4.2 g/dL (3.7-5.6); Alkaline Phosphatase 89 U/L (58-237); Anion Gap 9 mmol/L (4-12); Aspartate Amino Transferase 33 U/L (17-59); Bilirubin,Total 0.8 mg/dL (0.2-1.3); Blood Urea Nitrogen 9 mg/dL (8-21); Calcium 9.2 mg/dL (8.9-10.7); Carbon Dioxide 25 mmol/L (22-30); Chloride 108 mmol/L (98-107); Estimated CRCL calculation 117 ml/min; Estimated Glomerular Filt Rate > 60; Glucose 64 mg/dL (65-110); Magnesium 2.1 mg/dL (1.6-2.3); Potassium 4.4 mmol/L (3.4-5.0); Sodium 142 mmol/L (134-143)
--- NOTE | 2025-01-04 13:41 | P.DS_ITS ---
DS: Admitting Diagnosis Discharge Date 01/04 Admitting Diagnosis ams DS: Discharge Diagnosis Discharge Diagnosis (1) Altered mental state: Code(s): R41.82 - Altered mental status, unspecified Status: Acute (2) Cannabis overdose: Qualifiers: Encounter type: initial encounter Code(s): T40.711A - Poisoning by cannabis, accidental (unintentional), initial encounter Status: Acute DS: Summary Hospital Course Hospital Course: This is a 19 year old male patient with no previous medical history admitted to the hospital after prolonged observation in ER after reported cannabis overdose over 24 hours ago. Patient was last known well around 2200 on 01/02/25 before patient's father went to bed. Since that time patient reported taking 2 THC-P gummies but a friend told dad that he actually had 8 of these gummies. There was also possible ETOH ingestion as well. On 01/03 when dad got home from work patient was altered LOC in a chair at the home. Patient told ER that he drank some champagne and whiskey in addition to THC-P. Family and patient deny attempt to harm himself but it did appear that patient missed work today. Urine drug screen showed cannabis. ETOH was negative. Patient very somnolent and requires moderate tactile stimulus to awaken. He will answer 1-2 questions and fall immediately back asleep. Patient has not had anything to eat or drink in over 24 hours. IV fluids given in ER. CT scan of head, cervical spine, chest/abdomen/pelvis completed in ER. No traumatic injuries identified nor suspected. All imaging studies reviewed and negative. Poison control recommended admission to the hospital to be monitored for at least 8h. # AMS -Patient states 2 THC-P gummies 8 mg each however friend informed family that patient had 8 of these gummies with some alcohol on 01/02/25 evening -UDS positive for cannabis, otherwise negative -Pupils dilated and sluggish and patient responsive to tactile stimulus -No response to Narcan in ER -No change in condition despite prolonged observation in ER -Poison control recommends admission with symptomatic care -No known or suspected self harm but patient should be questioned again when awake -BP/HR drifting lower overnight (probably normal given age/weight/health status -Tachycardia reported when patient had increased activity prior to IV fluids in ER -ETOH and other labs negative/normal. - VITALs stable, no bradycardia episodes # Poisoning by cannabis, accidental (unintentional) - recommended to stay overnight and be observed per poison control VS remained stable labs ok pt is sleepy but wakes up when spoken to ok to discharge with a close f/u with pcp - discussed staying away from any substance-legal or not, alcohol, coffee, energy drinks. Rest and stay hydrated. Discussed with parents and stepmother who all were at the bedside. Status at Discharge Functional status at discharge: independent ambulation Overall status at discharge: patient is progressing back to baseline Time Spent with Patient Time attestation: Total time spent providing and/or coordinating discharge services: Time spent: Less than 30 minutes Exam Narrative: GENERAL: calm, sleepy but wakes up when spoken to HEAD: Normocephalic, atraumatic. EYES: non icteric. Pupils 6 mm bilaterally, sluggishly reactive. Right conjunctival erythema without drainage noted ENT: Nares clear, no rhinorrhea or epistaxis. Gross auditory acuity intact. No hemotympanum. Dry lips, mildly tacky mucous membranes. NECK: Supple. No meningismus. CHEST: Speaking in full sentences. No respiratory distress. Lungs clear to auscultation bilaterally. HEART: Regular rate and rhythm. ABDOMEN: Soft, nondistended. No rigidity or guarding. Not peritoneal EXTREMITIES: No lower extremity edema. Demonstrates ability to move arms and legs but with minimal motion. SKIN: Warm, dry, no rash. NEURO: Awakens to gentle shaking with hand on sternum, no deep sternal rub needed. Once awake will follow commands and answer 1-2 questions before falling back asleep PSYCH: Unable to assess Const: General: comfortable DS: Data Data Completed and Pending Completed studies during hospitalization: CT scan of head, cervical spine, chest/abdomen/pelvis Labs on day of discharge: Labs from last 24 hours 01/04/25 01/03/25 01/03/25 05:39 22:17 21:38 WBC 9.7 RBC 4.84 Hgb 13.6 L Hct 42.4 MCV 87.6 MCH 28.1 MCHC 32.1 RDW 12.9 Plt Count 221 MPV 11.2 H Immature Gran % (Auto) 0.2 Neut % (Auto) 60.1 Lymph % (Auto) 32.5 [place] % (Auto) 5.7 Eos % (Auto) 0.7 Baso % (Auto) 0.8 Lymph # (Auto) 3.16 [place] # (Auto) 0.6 Eos # (Auto) 0.1 Baso # (Auto) 0.1 Abs Immat Gran (auto) 0.02 Absolute Neuts (auto) 5.9 Absolute Nucleated RBC 0.000 Nucleated RBC % 0.0 PT INR APTT Sodium 142 Potassium 4.4 Chloride 108 H Carbon Dioxide 25 Anion Gap 9 BUN 9 Creatinine 0.73 Estim Creat Clear Calc 117 Estimated GFR > 60 Glucose 64 L Calcium 9.2 Magnesium 2.1 Total Bilirubin 0.8 AST 33 ALT 17 Alkaline Phosphatase 89 Ammonia < 9 L Total Creatine Kinase Total Protein 7.0 Albumin 4.2 TSH Thyroxine (T4) Total T3 Urine Color Urine Appearance Urine pH Ur Specific [place] Urine Protein Urine Glucose (UA) Urine Ketones Ur Blood (Man) Urine Nitrate Urine Bilirubin Urine Urobilinogen Leukocyte Esterase Rfl Salicylates < 1.0 L Urine Opiates Screen Urine Methadone Screen Acetaminophen < 10 L Ur Barbiturates Screen Ur Phencyclidine Scrn Ur Amphetamine Screen U Benzodiazepines Scrn Urine Cocaine Screen U Cannabinoids Screen Ethyl Alcohol 01/03/25 01/03/25 01/03/25 21:37 20:24 19:26 WBC 9.3 RBC 5.28 Hgb 14.7 Hct 44.5 MCV 84.3 MCH 27.8 MCHC 33.0 RDW 12.9 Plt Count 278 MPV 10.5 H Immature Gran % (Auto) 0.2 Neut % (Auto) 83.4 H Lymph % (Auto) 12.8 L [place] % (Auto) 3.2 Eos % (Auto) 0.0 Baso % (Auto) 0.4 Lymph # (Auto) 1.19 [place] # (Auto) 0.3 Eos # (Auto) 0.0 Baso # (Auto) 0.0 Abs Immat Gran (auto) 0.02 Absolute Neuts (auto) 7.8 H Absolute Nucleated RBC 0.000 Nucleated RBC % 0.0 PT INR APTT Sodium 139 Potassium 4.5 Chloride 104 Carbon Dioxide 25 Anion Gap 10 BUN 10 Creatinine 0.79 Estim Creat Clear Calc Not Reportable Estimated GFR > 60 Glucose 84 Calcium 10.0 Magnesium Total Bilirubin 0.7 AST 26 ALT 19 Alkaline Phosphatase 89 Ammonia Total Creatine Kinase Total Protein 8.0 Albumin 5.2 TSH Thyroxine (T4) 7.20 Total T3 1.31 Urine Color Yellow Urine Appearance Clear Urine pH 5.5 Ur Specific [place] 1.021 Urine Protein Negative Urine Glucose (UA) Negative Urine Ketones Negative Ur Blood (Man) Negative Urine Nitrate Negative Urine Bilirubin Negative Urine Urobilinogen 1.0 Leukocyte Esterase Rfl Negative Salicylates Urine Opiates Screen Negative Urine Methadone Screen Negative Acetaminophen Ur Barbiturates Screen Negative Ur Phencyclidine Scrn Negative Ur Amphetamine Screen Negative U Benzodiazepines Scrn Negative Urine Cocaine Screen Negative U Cannabinoids Screen Positive A Ethyl Alcohol 01/03/25 01/03/25 19:25 19:24 WBC RBC Hgb Hct MCV MCH MCHC RDW Plt Count MPV Immature Gran % (Auto) Neut % (Auto) Lymph % (Auto) [place] % (Auto) Eos % (Auto) Baso % (Auto) Lymph # (Auto) [place] # (Auto) Eos # (Auto) Baso # (Auto) Abs Immat Gran (auto) Absolute Neuts (auto) Absolute Nucleated RBC Nucleated RBC % PT 13.9 INR 1.0 APTT 23.9 Sodium Potassium Chloride Carbon Dioxide Anion Gap BUN Creatinine Estim Creat Clear Calc Estimated GFR Glucose Calcium Magnesium Total Bilirubin AST ALT Alkaline Phosphatase Ammonia Total Creatine Kinase 104 Total Protein Albumin TSH 0.296 L Thyroxine (T4) Total T3 Urine Color Urine Appearance Urine pH Ur Specific [place] Urine Protein Urine Glucose (UA) Urine Ketones Ur Blood (Man) Urine Nitrate Urine Bilirubin Urine Urobilinogen Leukocyte Esterase Rfl Salicylates Urine Opiates Screen Urine Methadone Screen Acetaminophen Ur Barbiturates Screen Ur Phencyclidine Scrn Ur Amphetamine Screen U Benzodiazepines Scrn Urine Cocaine Screen U Cannabinoids Screen Ethyl Alcohol < 10 Discharge Plan Discharge Attending physician on discharge: Navjot Gong Discharging Clinician: Judy West Patient Disposition: Home Activity: december shower Diet: regular Discharge Instructions: You were admitted for altered mental status. You were treated for incidental ingestion of cannabis and alcohol. Poison control recommends admission with symptomatic care- you were observed in ED and admitted ot medsurg floor. Vital signs, labs- all were stable. we discussed, please f/u with pcp within a week or two. You will have lab work to repeat in 5-7 days after discharge to ensure kidney, liver function is good. Please avoid any substance-legal or not, alcohol, coffee, energy drinks. Rest and stay hydrated. Return to ED if any isuses- chest pain, sob, and/or any new symptoms. Patient Instructions: Antibiotic Form Patient Language: [place] Stand Alone Forms: General Discharge Information Follow-up/Referrals: PHYSICIAN,PROJECT MANAGEMENT ENGINEER [Primary Care Provider] - 2 Weeks Discharge Medications: New acetaminophen 325 mg Tablet 650 mg PO Q4H PRN (Reason: Mild Pain (1-3) Or Fever) Qty: 1 0RF Rx Instructions: continue tylenol OTC if needed Other Ambulatory Orders: Comprehensive Metabolic Panel (Routine) Timeframe: 1 Day Location: Determined by Patient Ordered By: Judy West Date of admission: 01/04/25 03:49 Primary Care Provider: PHYSICIAN,PROJECT MANAGEMENT ENGINEER Admitting Provider: Getachew Parra Attending physician on admission: Getachew Parra Condition: Stable Hospitalist MIPS Heart Failure (Exclusion) Patient has history of Heart Transplant or Left Ventricular Assistive Device?: No IF YES, STOP HERE Heart Failure (Qualifier) Patient has current or prior documentation of LVEF less than or equal to 40%, or mod/servere depressed LVSF?: No IF NO, STOP HERE
== END 2025-01-04 15:45 | disposition home or self-care (01) ==
LOC: ANHED 01-04 03:49 → ANH3MEDSUR 01-04 14:05
PROVIDERS: Nurse Practitioner; Admitting Provider Internal Medicine Hematology & Oncology; Emergency Provider Student in an Organized Health Care Education/Training Program; Visit Provider General Practice
DX: T40.711A Poisoning by cannabis, accidental (unintentional), initial encounter (principal); R41.82 Altered mental status, unspecified; F17.220 Nicotine dependence, chewing tobacco, uncomplicated; E05.90 Thyrotoxicosis, unspecified without thyrotoxic crisis or storm
CPT/HCPCS: 36415; 70450; 71260; 72125; 74177; 80053; 80143; 80179; 80307; 81003; 82077; 82140; 82550; 83735; 84436; 84443; 84480; 85025; 85610; 85730; 93005; 96361; 96374; 99285; G0378; J2310; J7030; Q9967